=== PATIENT | male | born 1950 | race Caucasian/White ===

== ENCOUNTER 2019-12-22 11:41 | Outpatient (CLI) | payer MEDICARE, SELFPAY ==
[2019-12-22 13:44] LABS: Hemoglobin A1C 5.2 % (<5.7)
== END 2019-12-22 11:42 | disposition home or self-care (01) ==
PROVIDERS: PCP Internal Medicine; Visit Provider Urology
DX: N52.9 Male erectile dysfunction, unspecified (principal)
CPT/HCPCS: 36415; 83036